=== PATIENT | female | born 1945 | race Caucasian/White ===

== ENCOUNTER 2017-02-19 | Inpatient (IN) ==
[2017-02-19] MEDS ORDERED: NS 1,000 ML IV ONE (00:17)
[2017-02-19] MEDS ORDERED: SOLU-MEDROL IV ONE (00:17)
[2017-02-19] MEDS ORDERED: XOPENEX NEB INH ONE (00:19)
[2017-02-19] MEDS ORDERED: NS NEB INH SCH ×2 (00:30→01:12)
[2017-02-19 00:38] LABS: MANUAL DIFF NEEDED? NO
[2017-02-19 00:40] LABS: BASO% 0.5 % (0.0-0.8); EOS# 0.25 X1000 (0.0-0.7); EOS% 1.7 % (0.0-10.0); HEMATOCRIT 35.8 % (37.0-47.0); HEMOGLOBIN 12.6 g/dL (12.0-16.0); IMM GRAN# 0.08 X1000 (0.0-0.04); IMM GRAN% 0.6 % (0.0-0.5); LYMPH# 6.29 X1000 (1.2-3.4); LYMPH% 43.6 % (20.5-51.1); MCH 32.6 PG (27-31); MCHC 35.2 g/dL (33-37); MCV 92.5 FL (81-99); MONO# 1.31 X1000 (0.11-0.59); MONO% 9.1 % (1.7-9.3); MPV 9.4 FL (7.4-10.4); NEUT% 44.5 % (42.2-75.2); PLT 419 X1000 (130-400); RBC 3.87 XMIL (4.2-5.4)
[2017-02-19 00:59] LABS: AGAP 15; BUN 11 mg/dL (8-22); CALCIUM 9.6 mg/dL (8.8-10.2); CHLORIDE 101 mmol/L (98-107); COSMO 285; POTASSIUM 3.3 mmol/L (3.5-5.1); SODIUM 143 mmol/L (136-145); TCO2 27 mmol/L (25-35)
[2017-02-19] MEDS ORDERED: KLOR-CON PO ONE ×2 (01:08→01:15)
[2017-02-19] MEDS ORDERED: ZOFRAN IV PRN (01:12)
[2017-02-19] MEDS ORDERED: TYLENOL PO PRN (01:12)
[2017-02-19] MEDS: ZANTAC PO SCH ×3 (01:54→20:27)
[2017-02-19] MEDS: LEVAQUIN PO SCH (02:07)
[2017-02-19] MEDS: TUSSIONEX LIQUID PO PRN ×2 (03:38→17:53)
[2017-02-19] MEDS: XOPENEX NEB INH SCH ×4 (04:06→22:10)
--- NOTE | 2017-02-19 04:29 | HISTORY AND PHYSICAL ---
CHIEF COMPLAINT: Cough and dyspnea. HISTORY OF PRESENT ILLNESS: Ms. Bina Roblero is a 71-year-old, lady who is followed as an outpatient by Dr. Michael Pradhan. She has a history of multiple medical problems including essential hypertension, gastroesophageal reflux disease, cervical spinal stenosis, and gastroesophageal reflux disease. Over the past 6 weeks, she has had recurrent upper respiratory tract infections in which she would have a productive cough, pleuritic chest pain with paroxysms of coughing, nasal congestion, and sore throat. She never really ever ran fever or chills. She has been on multiple rounds of antibiotics including a round of Augmentin, Zithromax, and doxycycline. Unfortunately her symptoms would improve initially with antibiotic therapy but would never fully resolve. Her symptoms would typically recur off antibiotics. She saw Dr. Pradhan in the office on Monday. A chest x-ray was grossly normal. She had a mild leukocytosis of 12,000. Dr. Pradhan started her on doxycycline and a Medrol Dosepak. She called me this evening with complaint of increasing shortness of breath and worsening wheezing, and bouts of coughing with which she would lose her breath. A chest x-ray demonstrated clear lung lee. PAST MEDICAL HISTORY: Essential hypertension, gastroesophageal reflux disease, cervical spinal stenosis, mixed hyperlipidemia, depression. PAST SURGICAL HISTORY: Bilateral carpal tunnel release, lithotripsy, cervical diskectomy, appendectomy. ALLERGIES: Sulfa, statins. FAMILY HISTORY: Her father had Parkinson's disease and Parkinson's induced dementia, and macular degeneration. He at the age of 90. Her mother had essential hypertension, mixed hyperlipidemia, embolic CVA, and ischemic heart disease, status post angioplasty and stenting of the LAD. She was 91 at her . She has 1 brother who has type 2 [id number] diabetes mellitus as well as severe degenerative arthritis. SOCIAL HISTORY: She denies the use of tobacco products. She will have an occasional glass of wine. She is a . MEDICATIONS: Pantoprazole 40 mg daily, Zantac 150 mg b.i.d., Carafate 1 g p.o. q.6 hours, Wellbutrin SR 150 mg daily, Diovan/hydrochlorothiazide 80/12.5 mg daily. REVIEW OF SYSTEMS: Constitutional: She denies any recent weight gain or weight loss. HEENT: She wears glasses. CV: No chest pain, palpitations, or anginal equivalents. She has had a previous normal cardiac catheterization performed by Dr. Portillo Doan within the past 5 years. Pulmonary: See HPI. GI: She has refractory reflux, sour brash, and intermittent dysphagia to liquids and solids. Dr. Bryant recently performed an EGD which demonstrated hemorrhagic gastritis. Endocrine: No polyuria, no polydipsia. No cold or heat intolerance. Skin: No easy bruisability. Neurologic: She has diffuse joint pain. Neurologic: No migraines or seizures. Psychiatric: History of depression. PHYSICAL EXAMINATION: GENERAL: This is an anxious appearing, 71-year-old, lady in no apparent distress. VITAL SIGNS: She is afebrile. Pulse is 98, respiratory rate 31, O2 saturation 98% on room air, BP 141/63. HEENT: Fundi with arteriolar wall thickening. Pupils equal, round, reactive to light. Extraocular eye movements intact. NECK: Supple. No masses, JVD, or bruits. CV: Tachycardic. Regular S1, S2. No murmur appreciated. LUNGS: She has diffuse end-expiratory wheezing and rhonchi scattered throughout all lung lee. ABDOMEN: Soft, nontender, with active bowel sounds. No hepatosplenomegaly. EXTREMITIES: No edema. No palpable cords were appreciated. NEUROLOGIC: Nonfocal. LABORATORY STUDIES: Various laboratory studies were obtained. A CBC demonstrated a white count of 14.43, hemoglobin 12.6, hematocrit 35.8, and a platelet count of 419,000. A BMP demonstrated the following: Sodium 143, potassium 3.3, chloride 101, BUN 11, creatinine 0.7, and a glucose of 101. ASSESSMENT AND PLAN: 1. Dyspnea and cough. The etiology of her persistent bronchospasm and cough is unclear. She has had recurrent upper respiratory tract infections which can be seen with underlying asthma as well as chronic obstructive pulmonary disease. She has never smoked. She certainly does have significant reflux type symptoms which could lead to silent aspiration and a chronic cough. I am going to admit her to [facility]. I will treat her with Xopenex nebulized every 6 hours, Solu-Medrol 125 mg intravenous load and then 60 mg intravenous every 8 hours, and oral Levaquin 750 mg daily. She does have a longstanding history of allergies which can increase her risk for asthma. I am also going to check IgG subclasses. We will also check serologies for mycoplasma as well as Bordetella pertussis. 2. Gastroesophageal reflux disease. She had a recent esophagogastroduodenoscopy which demonstrated hemorrhagic gastritis. We will elevate the head of her bed to 45 degrees. I will continue pantoprazole 40 mg daily and Zantac 150 mg twice a day. We may be forced to try low-dose Reglan but I am reticent to begin Reglan because of the potential side effects such EPS type symptoms and tardive dyskinesia. 3. Hypertension. Her blood pressure is stable. We will continue Diovan/hydrochlorothiazide 80/12.5 one by mouth daily. We will monitor her blood pressure. Given her clinical course and comorbid conditions, I believe that it is reasonable to admit the patient to the hospital for further evaluation and management. At this point in time, I believe that she will be in the hospital for at least 1 midnight and I will, therefore, place her in outpatient status with observation services. Given that she may have activity ad alia and given the recent findings of hemorrhagic gastritis on an esophagogastroduodenoscopy, I believe that the use of Lovenox or heparin for deep venous thrombosis prophylaxis is contraindicated. I believe that the risks of bleeding outweigh the risks of blood clots as she will be able to move ad alia about her room and in the hallways. cc: MD Michael Hagan MD
[2017-02-19] MEDS: SOLU-MEDROL IV SCH ×3 (05:14→20:27)
--- NOTE | 2017-02-19 09:29 | Diag Imaging Result Document ---
PROCEDURE NAME: CHEST-PORTABLE - 02/19/2017 PORTABLE CHEST: Compared with 07/08/2015. FINDINGS: Heart size is normal. There is a small left upper lobe granuloma from old granulomatous disease which is stable. There is mild prominence of right lower lung markings which appears grossly stable and may be chronic. There is no dense consolidation, pleural effusion, or pneumothorax identified. IMPRESSION: Mild prominence of right lower lung markings which may be chronic. No other evidence of acute disease.
[2017-02-19] MEDS: DIOVAN PO SCH (09:33)
[2017-02-19] MEDS: WELLBUTRIN XL PO SCH (09:33)
[2017-02-19] MEDS: PROTONIX PO SCH (09:34)
[2017-02-19] MEDS: VITAMIN D PO SCH (09:34)
--- NOTE | 2017-02-19 10:12 | PROGRESS NOTE ---
DATE: 02/19/2017 SUBJECTIVE: The patient was admitted overnight by Dr. Roblero. The patient was noted to have acute bronchospasm. She had been treated on several occasions for upper respiratory symptoms, cough, congestion, and bronchospasm. The patient was most recently seen on Monday. During that visit, patient was noted to have some flushing with medications, as well as hypertension. Her lungs were clear. It was felt this likely was medication associated. The benefits of continuing treatment, however, outweighed the risk. The patient states she did well through Monday. On Monday, patient developed worsening symptoms including cough, congestion, and wheezing. She contacted Dr. Roblero early this morning and patient was evaluated in the emergency department. While there, patient was noted to have significant bronchospasm. Full evaluation was pursued including pertussis and micro plasma evaluation. Patient was started on a levofloxacin therapy. IV steroids were initiated. Bronchodilators were initiated. This morning, patient states she feels significantly improved. She denies fevers, chills, nausea, vomiting, shortness of breath, or chest discomfort. OBJECTIVE: Vital signs: Temperature maximum 98.0, heart rate from 82 to 99, respirations 15-31, blood pressure 111-153 over 56-88. General: Well nourished, well developed, in no acute distress. Cardiovascular: Regular rate and rhythm. No significant murmurs, rubs, or gallops. Pulmonary: Diffuse wheezing, modest. Good air movement. Abdomen: Soft, nontender, nondistended. Positive bowel sounds. Extremities: Moves all extremities well. No significant clubbing, cyanosis, or edema. Dermatologic: Evaluation reveals no evidence of rash. LABORATORY DATA: None. ASSESSMENT AND PLAN: 1. Acute bronchospasm - The etiology at this point is unclear. This certainly could represent recurrent upper respiratory illnesses. In addition, allergic etiology and aspiration should be considered. The patient will be continued on levofloxacin, Xopenex, and Solu-Medrol therapy. We will place patient on aspiration precautions. We will start nightly Reglan therapy. We will follow up IgG subclasses and pertussis/mycoplasma evaluations. We will monitor patient's clinical course closely. 2. Shortness of breath - This likely was secondary to acute bronchospasm. The patient has achieved improvement. We will follow this. 3. Hypertension - We will continue patient on her home medications. 4. Cough - I suspect this represents a bronchospasm equivalent. She has achieved improvement with IV steroids and bronchodilators. We will also continue as needed cough syrup. 5. Prophylaxis - Lovenox has been held at this point secondary to a recent history of hemorrhagic gastritis. We will place patient on SCDs while in bed. 6. Disposition - At this point, patient continues to require intermediate care in the hospital setting secondary to outpatient failure. We will plan discharge home once appropriate. cc: Michael Pradhan MD
[2017-02-19] MEDS: REGLAN PO SCH (20:27)
[2017-02-20] MEDS: XOPENEX NEB INH SCH ×4 (03:50→20:04)
[2017-02-20] MEDS: SOLU-MEDROL IV SCH ×3 (04:29→20:55)
[2017-02-20] MEDS: VITAMIN D PO SCH (08:56)
[2017-02-20] MEDS: ZANTAC PO SCH ×2 (08:56→20:55)
[2017-02-20] MEDS: PROTONIX PO SCH (08:56)
[2017-02-20] MEDS: DIOVAN PO SCH (08:56)
[2017-02-20] MEDS: WELLBUTRIN XL PO SCH (08:56)
[2017-02-20] MEDS: LEVAQUIN PO SCH (08:56)
--- NOTE | 2017-02-20 16:15 | PROGRESS NOTE ---
DATE: 02/20/2017 SUBJECTIVE: The patient states overnight she had one episode of acute bronchospasm. Patient describes significant shortness of breath as well as increasing anxiety. The patient was treated appropriately by nursing staff. The patient states throughout the remainder of the evening, she rested reasonably well. This morning, patient complains of some flushing as well as some associated fatigue. The patient notes intermittent cough as well as some persistent bronchospasm. She denies fevers, chills, nausea, vomiting, or chest discomfort. OBJECTIVE: Vital Signs: T-max 98.4 degrees, heart rate 81-88, respirations 15-18, blood pressure 107 to 127 over 47 to 54. General: Well nourished, well developed, in no acute distress. Cardiovascular: Regular rate and rhythm. No significant murmurs, rubs, or gallops. Pulmonary: Bronchospasm bilaterally. Adequate air movement. Abdomen: Soft, nontender, nondistended. Positive bowel sounds. Extremities: Moves all extremities well. No significant clubbing, cyanosis, or edema. Dermatologic: Evaluation reveals no evidence of rash. LABORATORY DATA: None. ASSESSMENT AND PLAN: 1. Acute bronchospasm. At this point, the etiology remains unclear. This may be secondary to allergic etiology, upper respiratory illness, or the possibility of adult onset asthma. For now, we will continue levofloxacin, Solu-Medrol, and Xopenex therapy. At this point, I do not feel patient is prepared to began her steroid taper. We will continue her current dosing. We will re-evaluate this evening and determine if titrating down on steroid intervention is appropriate. We will continue to encourage aspiration precautions. 2. Shortness of breath. This is secondary to her underlying bronchospasm. We will continue to treat as described above. 3. Cough. I suspect this represents a bronchospasm equivalent. We will continue treatment as above. We will encourage incentive spirometry. This, too, will be followed. 4. Hypertension. We will continue patient's home medications as her blood pressure is controlled. 5. Anxiety. We discussed this in detail. At this point, I feel this is a secondary issue. We will remain aware. DISPOSITION: At this point, patient continues to require assisted care in the hospital setting. We will plan discharge home once appropriate. cc: Michael Pradhan MD
[2017-02-20] MEDS: REGLAN PO SCH (20:55)
[2017-02-20] MEDS: TUSSIONEX LIQUID PO PRN (21:08)
[2017-02-21] MEDS: XOPENEX NEB INH SCH ×4 (04:15→21:20)
[2017-02-21] MEDS: SOLU-MEDROL IV SCH ×2 (04:36→18:04)
[2017-02-21] MEDS: WELLBUTRIN XL PO SCH (08:39)
[2017-02-21] MEDS: PROTONIX PO SCH (08:39)
[2017-02-21] MEDS: VITAMIN D PO SCH (08:39)
[2017-02-21] MEDS: LEVAQUIN PO SCH (08:39)
[2017-02-21] MEDS: ZANTAC PO SCH ×2 (08:39→21:22)
[2017-02-21] MEDS: DIOVAN PO SCH (08:39)
[2017-02-21] MEDS: TUSSIONEX LIQUID PO PRN (08:58)
--- NOTE | 2017-02-21 09:46 | Diag Imaging Result Document ---
PROCEDURE NAME: CHEST-2 VIEWS - 02/21/2017 CHEST X-RAY 2 VIEWS, 02/21/2017: COMPARISON: 02/19/2017. FINDINGS: The lungs are normally expanded and clear. Heart size and mediastinal contours are normal. No pneumothorax or pleural effusion. IMPRESSION: Negative exam.
[2017-02-21 13:49] LABS: MYCOPLASMA PNEUMONIAE AB SEE COMMENTS
[2017-02-21] MEDS: ROBITUSSIN-AC PO PRN ×2 (18:04→21:47)
[2017-02-21] MEDS: REGLAN PO SCH (21:22)
[2017-02-21] MEDS: MUCINEX DM PO SCH (21:22)
--- NOTE | 2017-02-21 21:56 | PROGRESS NOTE ---
DATE: 02/21/2017 SUBJECTIVE: The patient was initially evaluated this morning. The patient had demonstrated evidence of improvement. Patient's steroids were decreased. Bronchodilators were continued. This evening patient had experienced a repeat episode of persistent cough with associated bronchospasm. Patient noted increasing anxiety associated with the coughing spell. A dose of steroid was provided. Bronchodilators were continued. The patient did have an episode of hemoptysis associated. For this reason, a CT angiogram was pursued. Patient was found to have some mucus plugging and atelectasis but no evidence of pneumonia or pulmonary thromboembolism was identified. The patient denies fevers, chills, nausea, vomiting, or chest discomfort. OBJECTIVE: Vital signs: T-max 98.7 degrees, heart rate 72-101, respirations 18-20, blood pressure 102 to 142 over 55 to 62. General: Well nourished, well developed, no acute distress. Cardiovascular: Regular rate and rhythm. No significant murmurs, rubs, gallops. Pulmonary: Minimal wheezing bilaterally. Adequate air movement. Abdomen: Soft, nontender, nondistended. Positive bowel sounds. Extremities: Moves all extremities well. No significant clubbing, cyanosis, edema. Dermatologic: No evidence of rash. LABORATORY DATA: None. ASSESSMENT AND PLAN: 1. Acute bronchospasm-once again, etiology is unclear. I suspect this likely it is secondary to reflux/aspiration versus allergic etiology versus infectious etiology versus late onset asthma. For now, we will continue bronchodilators and IV steroids. Once able we will plan to initiate steroid taper. Should patient's condition continued to persist we will have a low threshold for consultation with Pulmonary Medicine. 2. Shortness of breath-patient continues to have intermittent coughing and bronchospasm precipitating shortness of breath. We will continue oxygen per protocol. 3. Cough-patient continues have a significant cough. In the setting of bronchospasm and mucus plugging we will start Mucinex DM and continue bronchodilators. We will consider adding Mucomyst should condition continue. 4. Hypertension-we will continue patient's home medications. 5. Anxiety-at this point her symptoms are reasonably controlled. Will remain aware. 6. Disposition-this point patient continues to require detention care in the hospital setting. We will plan discharge home once appropriate. cc: Michael Pradhan MD
[2017-02-22] MEDS: SOLU-MEDROL IV SCH (01:57)
[2017-02-22] MEDS: XOPENEX NEB INH SCH ×3 (03:03→16:08)
[2017-02-22] MEDS: ROBITUSSIN-AC PO PRN ×3 (04:02→14:45)
--- NOTE | 2017-02-22 07:48 | Diag Imaging Result Document ---
PROCEDURE NAME: ANGIOGRAM/PULMONARY ARTERIES - 02/21/2017 CT ANGIOGRAM OF PULMONARY ARTERIES WITH CONTRAST: Exam performed with intravenous contrast. A dose-reduction protocol was used. Axial and coronal images are obtained. No comparison exam. There are no filling defects identified in the pulmonary arteries. There is no indication of aortic dissection. There is borderline cardiomegaly. There is a left upper lobe calcified granuloma from old granulomatous disease. There is subsegmental atelectasis at the left base. There is no consolidation, pleural effusion, or pneumothorax identified. IMPRESSION: 1. No evidence of pulmonary embolism. 2. Subsegmental atelectasis at left base. No discrete pneumonia. The on-call radiologist provided preliminary results at 8:50 p.m. on 02/21/2017.
[2017-02-22 07:51] LABS: BASO% 0.1 % (0.0-0.8); HEMATOCRIT 36.1 % (37.0-47.0); HEMOGLOBIN 12.1 g/dL (12.0-16.0); IMM GRAN# 0.17 X1000 (0.0-0.04); IMM GRAN% 1.1 % (0.0-0.5); LYMPH# 1.05 X1000 (1.2-3.4); LYMPH% 6.7 % (20.5-51.1); MANUAL DIFF NEEDED? YES; MCH 31.9 PG (27-31); MCHC 33.5 g/dL (33-37); MCV 95.3 FL (81-99); MONO# 0.75 X1000 (0.11-0.59); MONO% 4.8 % (1.7-9.3); MPV 9.7 FL (7.4-10.4); NEUT% 87.3 % (42.2-75.2); PLT 388 X1000 (130-400); RBC 3.79 XMIL (4.2-5.4)
[2017-02-22 08:03] LABS: AGAP 13; ALBUMIN 3.8 g/dL (3.5-5.0); ALKALINE PHOSPHATASE 72 U/L (32-104); BUN 14 mg/dL (8-22); CALCIUM 9.1 mg/dL (8.8-10.2); CHLORIDE 103 mmol/L (98-107); COSMO 287; GOT 20 U/L (10-30); GPT 15 U/L (10-36); POTASSIUM 4.3 mmol/L (3.5-5.1); SODIUM 143 mmol/L (136-145); TCO2 27 mmol/L (25-35); TOTAL BILIRUBIN 0.28 mg/dL (0.20-1.00); TOTAL PROTEIN 6.3 g/dL (6.3-8.3)
[2017-02-22 08:31] LABS: BANDS 4 % (0-1); LYMPHS 8 % (21-51); MONO 6 % (1-9)
[2017-02-22] MEDS ORDERED: PREDNISONE PO ONE (08:43)
[2017-02-22] MEDS: WELLBUTRIN XL PO SCH (09:20)
[2017-02-22] MEDS: VITAMIN D PO SCH (09:20)
[2017-02-22] MEDS: PROTONIX PO SCH (09:20)
[2017-02-22] MEDS: MUCINEX DM PO SCH (09:20)
[2017-02-22] MEDS: LEVAQUIN PO SCH (09:21)
[2017-02-22] MEDS: ZANTAC PO SCH (09:21)
[2017-02-22] MEDS: DIOVAN PO SCH (09:21)
[2017-02-22 13:08] VITALS: BP 122/60
--- NOTE | 2017-02-23 14:09 | DISCHARGE SUMMARY ---
ADMISSION DATE: 02/19/2017 DISCHARGE DATE: 02/22/2017 ADMISSION DIAGNOSIS: Cough and congestion. DISCHARGE DIAGNOSES: 1. Acute bronchospasm with associated cough. 2. Shortness of breath, improving. 3. Hypertension, present on arrival. 4. Anxiety, present on arrival. CONSULTATIONS: None. PROCEDURES: 1. A chest x-ray was performed on 02/19/2017 which revealed mild prominence of the right lower lung markings which may be chronic. No other evidence of acute disease. 2. A chest x-ray was performed on 02/21/2017 which revealed a negative examination. 3. A CT pulmonary angiogram was performed on 02/21/2017 which revealed no evidence of pulmonary embolism. Subsegmental atelectasis of the left base. No discrete pneumonia. HISTORY AND PHYSICAL EXAMINATION: See admit note. PHYSICAL EXAMINATION PRIOR TO DISCHARGE: Vital Signs: Temperature 97.6 degrees, heart rate 97, respirations 21, blood pressure is 122/60. General: Well nourished well developed, in no acute distress. Cardiovascular: Regular rate and rhythm. No significant murmurs, rubs, or gallops. Pulmonary: Clear to auscultation bilaterally. Abdomen: Soft, nontender, nondistended. Positive bowel sounds. Extremities: Moves all extremities well. No significant clubbing, cyanosis, or edema. Dermatologic: Evaluation reveals no evidence of rash. LABORATORY DATA: White blood cell count 15.56, hemoglobin 12.1, hematocrit 36.1, platelet count 388,000. Sodium 143, potassium 4.3, chloride 103, bicarbonate 27, BUN 14, creatinine 0.7, glucose 130, calcium 9.1, total bilirubin 0.28, total protein 6.3, albumin 3.8, alkaline phosphatase 72, AST 20, ALT 15. ASSESSMENT AND PLAN: 1. Acute bronchospasm with associated cough - Upon admission, patient was noted to have diffuse bilateral bronchospasm. Patient was placed on broad-spectrum antibiotics, IV steroids, and Xopenex nebulizer. Patient tolerated each of these procedures very well. Throughout hospitalization, her bronchospasm improved considerably. Unfortunately, she did continue to have intermittent cough. This was treated with Robitussin AC and Mucinex DM as needed. Despite this, she continued to have significant cough. At time of discharge, because the bronchospasm and wheezing had improved considerably and the cough was nonlimiting, patient will be discharged home. We will plan to follow patient's cough very closely as an outpatient. I suspect with time and with better treatment of her underlying reactive airway disease, this will resolve. In addition, we will discontinue patient's valsartan as this may be precipitating the dry cough. 2. Shortness of breath - Upon admission, patient was noted to have considerable shortness of breath. With treatment of patient's underlying bronchospasm, she achieved significant improvement. At time of discharge, her oxygen saturation was within normal limits without oxygen supplementation. This will be followed as an outpatient as well. 3. Slightly low immunoglobulin level - At this point, I suspect this is noncontributory. We will remain aware. 4. Hypertension - Patient's blood pressure remained controlled throughout hospitalization. As described above, we will discontinue valsartan as this may be precipitating the cough. We will continue hydrochlorothiazide therapy. I have asked patient to keep a log of her blood pressure between now and next visit. We will determine if further intervention is warranted. 5. Anxiety - At this point, patient's symptoms are reasonably controlled without medical intervention. We will remain aware. 6. Hemoptysis - Patient had 1 episode of hemoptysis while hospitalized. CT angiogram returned without evidence of acute disease. Sputum cultures have returned negative to date. We will remain aware. DISCHARGE CONDITION: Good. DISPOSITION: Discharge to home. MEDICATIONS: 1. Bupropion ER 150 mg daily. 2. Vitamin D3 1000 units daily. 3. Acetaminophen 650 mg every 4 hours as needed. 4. Robitussin AC 10 mL every 4-6 hours as needed. 5. Mucinex DM twice daily. 6. Hydrochlorothiazide 12.5 mg daily. 7. Xopenex 1.25 mg every 4 hours as needed. 8. Levofloxacin 750 mg daily for the next 3 days. 9. Reglan 5 mg at bedtime. 10. Pantoprazole 40 mg daily. 11. Prednisone taper starting at 50 mg daily, titrating down 5 mg per day until off. 12. Carafate 1 g every 6 hours as needed. FOLLOWUP: Patient is to follow with me on Monday. cc: Michael Pradhan MD
== END 2017-02-22 17:06 | disposition home or self-care (01) ==
LOC: ED → 3N → OBSVTOIN 00:50 → 3N 00:59
PROVIDERS: ADMIT Internal Medicine; ATTEND Internal Medicine